=== PATIENT | male | born 1985 | race Caucasian/White ===

== ENCOUNTER 2018-01-08 16:29 | Emergency (ER) | payer OTHER ==
[2018-01-08 17:03] LABS: #Basophils 0.1 thou/uL (0.0-0.2); #Eosinphils 0.2 thou/uL (0.0-0.7); #Lymphocytes 2.2 thou/uL (1.20-3.40); #Monocytes 0.5 thou/uL (0.11-0.59); #Neutrophils 9.2 thou/uL (1.40-6.50); %Basophils 0.6 % (0.0-1.0); %Eosinophils 1.4 % (0.0-10.0); %Lymphocytes 18.2 % (21.0-51.0); %Monocytes 4.2 % (0.0-10.0); %Neutrophils 75.6 % (42.0-75.0); Hemoglobin 17.3 g/dL (14.0-18.0); Mean Corpuscular HGB CONC 34.7 g/dL (32.0-36.0); Mean Corpuscular Hemoglobin 30.9 pg (27.0-31.0); Mean Corpuscular Volume 89.2 fl (80.0-94.0); Mean Platelet Volume 7.1 fL (7.4-10.4); Platelet Count 317 thou/uL (130-400); RBC Distribution Width 11.5 % (11.5-14.5); Red Blood Cell (RBC) Count 5.61 mill/uL (4.70-6.10); White Blood Cell (WBC) Count 12.1 thou/uL (4.8-10.8)
[2018-01-08 17:20] LABS: ALT (SGPT) 45 U/L (8-55); AST (SGOT) 28 U/L (5-34); Albumin 4.9 g/dL (3.5-5.0); Alkaline Phosphatase 81 U/L (40-150); Anion Gap 17 mmol/L (10-20); BUN (Urea Nitrogen) 6 mg/dL (8.9-20.6); Bilirubin, Total 0.9 mg/dL (0.2-1.2); CK (CPK) 76 U/L (30-200); Calc. Creatinine Clearance 0 mL/min (70-130); Carbon Dioxide 27 mmol/L (22-29); Chloride 104 mmol/L (98-107); Estimated GFR-MDRD 82; Globulin 3.5 g/dL (2.4-3.5); Glucose 106 mg/dL (70-105); Potassium 3.5 mmol/L (3.5-5.1); Protein, Total 8.4 g/dL (6.0-8.3); Sodium 144 mmol/L (136-145)
[2018-01-08 17:38] LABS: Troponin I Less than 0.010 ng/mL (< 0.028)
--- NOTE | 2018-01-08 18:05 | CT ---
BRAIN CT WITHOUT IV CONTRAST: HISTORY: A 32-year-old male with a history of syncope and collapse. FINDINGS: No focal mass or midline shift. No intraaxial or extraaxial hemorrhage. Sinuses and mastoids are cl ear. IMPRESSION: No acute intracranial process. No mass or bleed. POS: RRE
[2018-01-08 20:32] LABS: Troponin I Less than 0.010 ng/mL (< 0.028)
== END 2018-01-08 21:49 | disposition home or self-care (01) ==
LOC: SCSER 16:29
DX: T67.5XXA Heat exhaustion, unspecified, initial encounter (principal); R55 Syncope and collapse; R07.89 Other chest pain; E78.5 Hyperlipidemia, unspecified; K50.90 Crohn's disease, unspecified, without complications; M19.90 Unspecified osteoarthritis, unspecified site; H40.9 Unspecified glaucoma; K31.84 Gastroparesis; F17.290 Nicotine dependence, other tobacco product, uncomplicated; Z79.899 Other long term (current) drug therapy
CPT/HCPCS: 70450; 80053; 82550; 82553; 84484; 85025; 93005; 96360; 96361

== ENCOUNTER 2018-08-22 07:48 | Outpatient (CLI) | payer OTHER ==
--- NOTE | 2018-08-22 10:10 | BD ---
DEXA BONE DENSITY: HISTORY: A 32-year-old male. Osteoporosis. COMPARISON: None. FINDINGS: LUMBAR SPINE BMD (g/cm2) T-SCORE Z-SCORE L1 0.989 -0.8 -0.8 L2 0.893 -1.8 -1.8 L3 1.022 -0.7 -0.7 L4 0.999 -0.8 -0.8 TOTAL 0.977 -1.0 -1.0 FEMORAL NECK 0.777 -1.1 -0.9 TOTAL 1.050 0.1 0.2 IMPRESSION: 1. Lumbar spine WHO classification is normal. Fracture risk is not increased. Of note, there does appear to be hypertrophy secondary to degenerative change, which may falsely increase the patient's b one mineral density and decrease the patient's fracture risk 2. Femoral neck WHO classification is osteopenia. Fracture risk is not reported because the man is under age 50, prior hip or vertebral body fracture, treated for osteoporosis. POS: [facility]
== END 2018-08-22 07:49 | disposition home or self-care (01) ==
LOC: BICMAMMO 07:48
PROVIDERS: ATTEND Internal Medicine Rheumatology
DX: M81.0 Age-related osteoporosis without current pathological fracture (principal); M85.859 Other specified disorders of bone density and structure, unspecified thigh
CPT/HCPCS: 77080